=== PATIENT | female | born 1990 | race Caucasian/White ===

== ENCOUNTER 2019-10-30 14:51 | Inpatient (IN) | payer OTHER ==
[~2019-10-30] VITALS: Ht 165.1 cm; Wt 3.2 kg
[2019-11-03] MEDS ORDERED: CODE1TAB37 PO (07:55)
[2019-11-03] MEDS ORDERED: IBUPROFEN600 MG PO (07:55)
[2019-11-03] MEDS ORDERED: DOCUSATE SODIU100 MG PO (07:56)
== END 2019-11-03 14:27 | disposition home or self-care (01) | DRG 788 ==
LOC: LDR 14:51 → SURG-SUITE 14:51 → O/R 17:40 → SURG-SUITE 18:41
PROVIDERS: ADMIT Obstetrics & Gynecology; ATTEND Obstetrics & Gynecology
PROC: 4A1HXCZ Monitoring of Products of Conception, Cardiac Rate, External Approach (ICD-10-PCS; 2019-10-30)
PROC: 10D00Z1 Extraction of Products of Conception, Low, Open Approach (ICD-10-PCS; principal; 2019-10-30 17:15)
DX: O76 Abnormality in fetal heart rate and rhythm complicating labor and delivery (principal); Z3A.40 40 weeks gestation of pregnancy; Z37.0 Single live birth; Z20.828 Contact with and (suspected) exposure to other viral communicable diseases